=== PATIENT | female | born 1940 | race Caucasian/White ===

== ENCOUNTER → 2016-07-08 | Outpatient (CLI) | payer MEDICARE, BC ==
[~2016-07-08] MED LIST: AMOXICILLIN875 MG PO; ARICEPT PO; ASPIRIN EC81 M1; CALCIUM + D 6001 TA1 PO; CELEBREX PO; DOMPERIDONE PO; FROVA2.5 MG PO; KLOR-CON PO; LIDODERM30 EA TOP; MULTI-DAY VITAM1 TAB PO; NAMENDA10 MG PO; PHENERGAN25 MG PO; PLAVIX PO; PRILOSEC20 MG PO; PROAMATINE10 MG PO; PROZAC40 MG PO; [UNRECOGNIZED DRUG - OTHER] PO; [UNRECOGNIZED DRUG - SUPPLY]
--- NOTE | ~2016-07-08 | CR172 ---
[facility] A Service of [facility] & [facility] RADIOLOGY TEXT RESULTS PATIENT: KELBER YAN LOCATION: [facility] : 40 UNIT #: [id number] AGE: [address]: SUZETTE AGUILERA SEX: F ORDER DR: [id number] [facility] [address] [place], [place] [address] [id number] O MR#: [id number] Acc #: [id number] NAME: KLEBER YAN : 1940 SEX: F STUDY DATE/TIME: 07/08/2016 15:50 UNIT: [facility] ROOM: STUDY DESCRIPTION: CR Knee 3 Views Lt Attending Physician: Anne Alejandro Referring Physician: Anne Alejandro Primary Care Physician: Sun Moore M.D. MEDICAL IMAGING REPORT This report is preliminary unless electronic signature is present EXAM Left knee, 3 views HISTORY Left knee pain with weightbearing for 5 days. FINDINGS 3 views are submitted. The examination shows marked narrowing of the medial compartment joint space with flattening of the articular surfaces, both in the medial femoral condyle and in the medial tibial plateau. There is mild compensatory widening of the lateral compartment. There is advanced spur formation along the intercondylar notch with subchondral cyst formation. There is advanced patellofemoral disease. No fractures are seen. No obvious joint effusion is present. CONCLUSION Advanced osteoarthritis. No acute finding suspected. Dictated by... Miller Miranda M.D. THIS IS AN ELECTRONICALLY VERIFIED REPORT Miller Miranda M.D. at 07/09/2016 8:01 AM KEMI/bety TD: 07/09/2016 04:12 JOB #: [id number] MEDICAL IMAGING REPORT COPY
== END | disposition home or self-care (01) ==
LOC: CRAD 15:28
DX: M25.562 Pain in left knee (principal); M17.12 Unilateral primary osteoarthritis, left knee
CPT/HCPCS: 73562